=== PATIENT | male | born 1950 | race Two or more races ===

== ENCOUNTER 2020-09-11 01:41 | Day surgery (SDC) | payer MEDICARE ==
[~2020-09-11 01:41] MED LIST: ACYC800 PO; ASPI325 PO; ATOR80 PO; BASAGLAR K100 UNIT/1 SC; CEPH500 PO; CIPR500 PO; ERYT.5TO OS; FLUC150A PO; GABA300 PO; GLIP10; HUMALOG KW100 UNIT/1; HYDACE5 PO; LOSA25 PO; LOSA50 PO; METF500; METF500 PO; RXHYDACE PO; SIMV5; SULTRIDS PO; TOBR.3OPSO OD
== END 2020-09-11 23:00 | disposition home or self-care (01) ==
LOC: WOUND 01:41
DX: E11.621 Type 2 diabetes mellitus with foot ulcer (principal); L97.512 Non-pressure chronic ulcer of other part of right foot with fat layer exposed; T65.91XD Toxic effect of unspecified substance, accidental (unintentional), subsequent encounter; E11.59 Type 2 diabetes mellitus with other circulatory complications; E11.21 Type 2 diabetes mellitus with diabetic nephropathy
CPT/HCPCS: A9270; G0463

== ENCOUNTER 2020-09-18 08:00 | Day surgery (SDC) | payer MEDICARE | END 2020-09-18 23:59 | disposition home or self-care (01) | LOC: WOUND 08:00 | DX: E11.621 Type 2 diabetes mellitus with foot ulcer (principal); L97.515 Non-pressure chronic ulcer of other part of right foot with muscle involvement without evidence of necrosis; T65.91XD Toxic effect of unspecified substance, accidental (unintentional), subsequent encounter; S81.811A Laceration without foreign body, right lower leg, initial encounter; X58.XXXD Exposure to other specified factors, subsequent encounter; E11.59 Type 2 diabetes mellitus with other circulatory complications; E11.21 Type 2 diabetes mellitus with diabetic nephropathy ==

== ENCOUNTER 2020-10-08 07:50 | Day surgery (SDC) | payer MEDICARE | END 2020-10-08 23:02 | disposition home or self-care (01) | LOC: WOUND 07:50 | DX: E11.621 Type 2 diabetes mellitus with foot ulcer (principal); L97.515 Non-pressure chronic ulcer of other part of right foot with muscle involvement without evidence of necrosis; E11.59 Type 2 diabetes mellitus with other circulatory complications; E11.40 Type 2 diabetes mellitus with diabetic neuropathy, unspecified | CPT/HCPCS: A9270 ==

== ENCOUNTER 2020-11-05 06:27 | Day surgery (SDC) | payer MEDICARE ==
[~2020-11-05] VITALS: Ht 165.1 cm; Wt 76.2 kg
[~2020-11-05 06:27] MED LIST changes: +CHLO25B PO; +GLIP5 PO; +SILD50TA PO; +TRAM50 PO
--- NOTE | 2020-11-05 09:28 | NUR ---
[facility] A&OPatricia STATON in to explain procedure findings. left groin site stable no bleeding no hematoma.
--- NOTE | 2020-11-05 10:01 | NUR ---
interpretor Tricia at bedside.
--- NOTE | 2020-11-05 11:35 | NUR ---
PATIENT SITTING IN BED EATING BREAKFAST
--- NOTE | 2020-11-05 11:50 | NUR ---
MEAGHAN FROM [facility] OFFICE BROUGHT OVER NEXT APPOINTMENT TIME AND LAB WORK PAPERWORK FOR ALBERTO
--- NOTE | 2020-11-05 12:10 | NUR ---
WITH ASSIST FROM INTERPRETOR RADHA, PATIENT VERBALIZED UNDERSTANDING OF DISCHARGE INSTRUCTIONS AND PRECAUTIONS. FORD OVER PAPERWORK FROM DR AVENDANO OFFICE CONCERNING LAB WORK AND NEXT APPOINTMENT. LEFT GROIN SITE REMAINS SOFT AND NONTENDER. NO HEMATOMA. DRESSING DRY AND IN TACT. PATIENT DISCHARGED VIA WHEELCHAIR TO WAITING CAR WITH VERÓNICA (DAUGHTER). DISCUSSED PROCEDURE DONE TODAY WITH HE. ALSO THE DISCHARGE INSTRUCTIONS AND PRECAUTIONS. SHE IS ALSO AWARE OF NEXT APPOINTMENT AND LAB WORK. NO FURTHER QUESTIONS.
== END 2020-11-05 12:00 | disposition home or self-care (01) ==
LOC: MHTC 06:27
DX: E11.51 Type 2 diabetes mellitus with diabetic peripheral angiopathy without gangrene (principal); I70.213 Atherosclerosis of native arteries of extremities with intermittent claudication, bilateral legs; I70.25 Atherosclerosis of native arteries of other extremities with ulceration; L98.499 Non-pressure chronic ulcer of skin of other sites with unspecified severity; E11.42 Type 2 diabetes mellitus with diabetic polyneuropathy; E11.39 Type 2 diabetes mellitus with other diabetic ophthalmic complication; I10 Essential (primary) hypertension; J45.909 Unspecified asthma, uncomplicated; Z79.4 Long term (current) use of insulin; E78.5 Hyperlipidemia, unspecified
CPT/HCPCS: 76937; 99152; 99153; C1760; C1769; C1887; C1894; J0360; J1644; J2250; J3010; J7030; J7050; Q9967

== ENCOUNTER 2020-11-26 06:14 | Day surgery (SDC) | payer MEDICARE, OTHER ==
[~2020-11-26] VITALS: Ht 165.1 cm; Wt 76.0 kg
--- NOTE | 2020-11-26 13:12 | NUR ---
PT AMB TO BATHROOM /C SBA. TOLERATED WELL. STABLE GAIT. -BLEEDING OR SWELLING BILAT GROINS AND L FT.
--- NOTE | 2020-11-26 13:47 | NUR ---
PT AND [employer]IC[employer] PROFESSOR VERBALIZED UNDERSTANDING OF WRITTEN AND VERBAL D/C INST. IV REMOVED. PT TAKEN OUT OF THE [facility] CENTER VIA W/C.
== END 2020-11-26 13:45 | disposition home or self-care (01) ==
LOC: MHTC 06:14
DX: E11.51 Type 2 diabetes mellitus with diabetic peripheral angiopathy without gangrene (principal); I70.213 Atherosclerosis of native arteries of extremities with intermittent claudication, bilateral legs; I99.8 Other disorder of circulatory system; Z98.890 Other specified postprocedural states; E11.42 Type 2 diabetes mellitus with diabetic polyneuropathy; I10 Essential (primary) hypertension; J45.909 Unspecified asthma, uncomplicated; K21.9 Gastro-esophageal reflux disease without esophagitis
CPT/HCPCS: 37221; 37229; 37233; 75716; 75774; 76937; 82947; 85347; 99152; 99153; C1724; C1725; C1760; C1769; C1874; C1887; C1894; J0360; J1644; J2250; J3010; J7030; J7042; J7050; Q9967

== ENCOUNTER → 2022-05-18 | Outpatient (CLI) | payer MEDICARE, OTHER ==
[~2022-05-18] MED LIST changes: +ASPI81CH PO; +CLOP75 PO
[2022-05-18 20:14] LABS: Alanine Aminotransfer (ALT/SGP 19 U/L (12-78); Albumin, Blood 3.8 g/dL (3.4-5.0); Alk Phos 72 U/L (50-136); Anion Gap 6 mmol/L (6-16); Aspartate Aminotrans (AST/SGOT 17 U/L (12-37); Bilirubin, Total 0.3 mg/dL (0.1-1.0); Blood Urea Nitrogen 47 mg/dL (8-24); Bun/Creatinine Ratio 14.7 (12.0-20.0); CHOL/HDL RATIO 6.4; CO2, Blood 28 mmol/L (21-32); Chloride, Blood 100 mmol/L (98-108); Cholesterol 205 mg/dL (50-200); Creatinine, Blood 3.19 mg/dL (0.60-1.20); Globulin, Blood 3.9 g/dL (2.2-4.0); Glomerular Filtration Rate 20 (60-); Glucose, Blood 155 mg/dL (70-99); HDL Cholesterol 32 mg/dL (>39); LDL/HDL RATIO 3.5; Low Density Lipoprotein Chol 113 mg/dL (0-110); Potassium, Blood 4.4 mmol/L (3.5-5.5); Sodium, Blood 134 mmol/L (136-145); Total Protein, Blood 7.7 g/dL (6.4-8.2); Triglycerides 298 mg/dL (30-160); Very Low Density Lipoprot Chol 59 mg/dL (6-32)
[2022-05-20 07:11] LABS: HIV AB/P24 AG SCREEN Non Reactive (Non Reactive)
== END | disposition home or self-care (01) ==
LOC: LAB SHORT 18:01
PROVIDERS: Student in an Organized Health Care Education/Training Program
DX: Z00.00 Encounter for general adult medical examination without abnormal findings (principal); Z11.59 Encounter for screening for other viral diseases; E78.5 Hyperlipidemia, unspecified; I10 Essential (primary) hypertension; E11.42 Type 2 diabetes mellitus with diabetic polyneuropathy
CPT/HCPCS: 80053; 80061; 82043; 86803; 87389